=== PATIENT | male | born 1965 | race Caucasian/White ===

== ENCOUNTER 2018-05-07 18:39 | Emergency (ER) | payer MEDICAID ==
[~2018-05-07] VITALS: Ht 185.4 cm; Wt 83.9 kg
[2018-05-07 18:40] VITALS: BP_SYST 149
--- NOTE | 2018-05-07 18:40 | NUR ---
BROUGHT BACK TO BED #8 AND TRIAGED. REPORT GIVEN TO JOSSELYN
--- NOTE | 2018-05-07 18:45 | NUR ---
Pt presents to ER for rectal pain 5/10 on pain scale. Pt reports pain and reports feeling a "mass' around rectal area. Upon inspection, area above rectum contains redenned mass which pt reports pain with palpation. Pt denies any other symptoms at this time. Pt reports being HIV+, denies any new sexual partners aside from . Pt AOX4, speaking full sentences, ambulatory, no signs of acute distress.
--- NOTE | 2018-05-07 18:53 | NUR ---
STACI BAH AT BEDSIDE FOR EVALUATION
--- NOTE | 2018-05-07 19:00 | NUR ---
Fecal occult sample collected and sent to lab.
--- NOTE | 2018-05-07 19:05 | NUR ---
Report given from CAROLINA Ruiz.
[2018-05-07 19:45] LABS: BASOPHILS % (AUTO) 0.1 % (0.0-2.0); EOSINOPHILS % (AUTO) 0.4 % (0.0-4.0); HEMATOCRIT 42.7 % (36-54); HEMOGLOBIN 14.6 g/dL (14.0-18.0); LYMPHOCYTES % (AUTO) 18.1 % (20.5-51.5); MEAN CORPUSCULAR HEMOGLOBIN 32 pg (27-31); MEAN CORPUSCULAR HGB CONC 34 % (32-36); MEAN CORPUSCULAR VOLUME 92 fL (79.0-98.0); MONOCYTES % (AUTO) 8.7 % (1.7-9.3); NEUTROPHILS # (AUTO) 7.9 K/uL (1.8-7.7); NEUTROPHILS % (AUTO) 72.7 % (40.0-70.0); PLATELET COUNT (AUTO) 204 K/uL (130-430); RED BLOOD CELL COUNT(AUTO) 4.63 MIL/uL (4.2-6.2); RED CELL DISTRIBUTION WIDTH 12.3 % (9.0-15.0); WHITE BLOOD COUNT (AUTO) 10.9 K/uL (4.8-10.8)
[2018-05-07 19:49] LABS: CALCIUM 9.4 mg/dL (8.4-11.0); CREATININE 1.14 mg/dL (0.55-1.30)
[2018-05-07 19:54] LABS: TOTAL BILIRUBIN 0.3 mg/dL (0.0-1.0)
[2018-05-07 20:00] LABS: ALBUMIN 3.9 g/dL (3.4-4.8)
[2018-05-07 20:19] LABS: BILIRUBIN,URINE NEGATIVE (NEGATIVE); BLOOD, URINE NEGATIVE (NEGATIVE); CLARITY/URINE CLEAR (CLEAR); COLOR,URINE YELLOW (YELLOW); GLUCOSE,URINE NEGATIVE (NEGATIVE); KETONES,URINE NEGATIVE (NEGATIVE); LEUKOCYTE ESTERASE ,URINE NEGATIVE (NEGATIVE); NITRITE, URINE NEGATIVE (NEGATIVE); PH,URINE 6.5 (5.0-8.0); PROTEIN URINE NEGATIVE (NEGATIVE); UROBILINOGEN,URINE 0.2 (0.2-1.0)
[2018-05-07] MEDS ORDERED: ACETAMINOPHEN 500 MG TABLET PO ONE (21:00)
[2018-05-07] MEDS ORDERED: CLINDAMYCIN 600 mg/50mL D5W 50 ML IV ONE (21:00)
--- NOTE | 2018-05-07 21:00 | NUR ---
Pts temperature is 100.1, APPLIED RESEARCHER Ursula Alvares made aware.
--- NOTE | 2018-05-07 21:41 | NUR ---
Pt medicated with clindamycin IVF and tylenol PO per MD order. Tolerating well. Will cont. to monitor.
--- NOTE | 2018-05-07 22:30 | NUR ---
Jhonny raman in [facility] - 05/07/18 at 2259 by [email or web address] Received orders for pt to be transferred to [facility]. ETA 1512.
--- NOTE | 2018-05-07 22:30 | NUR ---
Received orders for pt to be transferred to [facility]. ETA 2310.
[2018-05-07 23:10] VITALS: BP_SYST 133
--- NOTE | 2018-05-07 23:10 | NUR ---
Patient to be transferred to [facility]. Is being transferred due to higher level of care. Receiving facility has accepting physician and available space. ER physician has signed transfer form. Patient or responsible democrat has agreed to transfer and signed form. Patient belongings inventoried and will be sent with patient. Copy of nursing notes, lab reports, EKG, Physicians Orders and X-rays to be sent with patient. Report called to CAROLINA Cruz at receiving facility. Receiving physician is Dr. Peralta. [facility] has been called for transfer. Transfer is here at 2310.
[2018-05-10 00:12] LABS: CHLAMYDIA TRACHOMATIS NAA Negative (Negative); NEISSERIA GONORRHOEAE NAA Negative (Negative)
== END 2018-05-07 23:10 | disposition short-term general hospital (02) ==
LOC: SED 18:39
DX: K61.1 Rectal abscess (principal); D72.829 Elevated white blood cell count, unspecified; R03.0 Elevated blood-pressure reading, without diagnosis of hypertension; F32.9 Major depressive disorder, single episode, unspecified; Z79.899 Other long term (current) drug therapy
CPT/HCPCS: 36415; 80053; 81003; 82272; 83605; 85025; 87040; 87491; 87591; 96365; 99285; J3490